=== PATIENT | female | born 1935 | race Caucasian/White ===

== ENCOUNTER 2017-10-25 01:00 | Inpatient (IN) | payer OTHER ==
[2017-10-25] VITALS (10 sets, daily range): BP systolic 125–181; BP diastolic 67–90
[~2017-10-25] VITALS: Ht 152.4 cm; Wt 64.0 kg
[~2017-10-25 01:00] MED LIST: ARICEPT5 M1 PO; ASPI-COR81 MG PO; ASPIRIN ADULT L81 M1 PO; B/P; ELIQUIS5 M1 PO; HYDRALAZINE10 MG PO; KEFTAB500 MG PO; LISINOPRIL20 MG PO; LOPRESSOR25 MG PO; MELOXICAM15 MG PO; METOPROLOL TART50 M1 PO; OMEPRAZOLE D/R20 MG PO; PERCOCET 325 MG1 TA7 PO; SERTRALINE HYDR50 MG PO; THYROID; VESICARE5 MG PO
--- NOTE | 2017-10-25 03:00 | NUR ---
PT DENIES ANY PAIN AT THIS TIME, PERCOCET EFFECTIVE.
--- NOTE | 2017-10-25 04:05 | NUR ---
Time: 404 A 82 year old F admitted to 4E under services of LENNOX HAWK DO. Pt. arrived via STRET[facility]ER from ER. Chief complaint: WEAKNESS. RAJESH BURGER
--- NOTE | 2017-10-25 04:47 | NUR ---
Unable to verify medication reconciliation at this time due to discrepancy between patient's medication list and medication claims history. Will need to verify with patient's pharmacy in am.
[2017-10-25 05:58] LABS: BASO % 0.5 % (0.0-1.0); EOS # 0.1 10*3/uL (0.0-0.4); EOS % 1.6 % (1.0-4.0); HEMATOCRIT 33.4 % (37.0-47.0); HEMOGLOBIN 11.3 g/dl (12.0-16.0); LYMPH # 0.9 10*3/uL (1.3-4.4); LYMPH % 20.9 % (27.0-41.0); MEAN CORPUSCULAR HGB 31.1 pg (27.0-31.0); MEAN CORPUSCULAR HGB CONC 33.8 g/dl (33.0-37.0); MEAN PLATELET VOLUME 10.4 fl (9.6-12.3); MONO # 0.4 10*3/uL (0.1-1.0); NEUT # 2.9 10*3/uL (2.3-7.9); NEUT % 66.8 % (47.0-73.0); PLATELET COUNT AUTOMATED 226 10*3/uL (130-400); RED BLOOD COUNT 3.63 10*6/uL (4.10-5.10); RED CELL DISTRI WIDTH 13.4 % (0-14.5); WHITE BLOOD COUNT 4.4 10*3/uL (4.8-10.8)
[2017-10-25 06:09] LABS: ACT PARTIAL THROMBO TIME 28.8 SECONDS (20.8-31.5); INTERNATIONAL NORM RATIO 1.1 (2.0-3.5)
[2017-10-25 06:10] LABS: BUN 19 mg/dl (7-24); CHLORIDE 103 mmol/L (98-107); CHOLESTEROL 191 mg/dL (<200); CREATININE 0.71 mg/dL (0.55-1.02); HDL CHOLESTEROL 41 mg/dl (40-60); LDL CHOLESTEROL 122 mg/dL (9-159); PHOSPHOROUS 3.5 mg/dL (2.5-4.9); POTASSIUM 3.7 mmol/L (3.5-5.1); SODIUM 138 mmol/L (136-145); TRIGLYCERIDES 141 mg/dl (<150); VLDL CHOLESTEROL 28 mg/dL (6-40)
[2017-10-25 06:17] LABS: THYROID STIM HORMONE (HS) 0.612 uIU/ml (0.358-4.75)
[2017-10-25 08:03] LABS: VITAMIN D, 25-HYDROXY 48.2 ng/mL (30-100)
[2017-10-25] MEDS ORDERED: LEXAPRO10 MG PO (11:27)
[2017-10-25] MEDS ORDERED: NORVASC5 MG PO (11:30)
--- NOTE | 2017-10-25 11:31 | NUR ---
MEDICATION RECONCILIATION UPDATED WITH PATIENTS HOME PHARMACY [facility].
--- NOTE | 2017-10-25 14:53 | NUR ---
MEDICATED WITH PERCOCET FOR COMPLAINTS OF HEADACHE AND PAIN IN FEET. WILL MONITOR FOR EFFECTIVENESS.
--- NOTE | 2017-10-25 15:30 | NUR ---
PERCOCET WAS EFFECTIVE. PATIENT AMBULATING IN MORALES WITH STAFF MEMBER WITHOUT ANY COMPLAINTS OF HEADACHE BUT STILL SOME CRAMPING OF HER LEGS.
--- NOTE | 2017-10-25 22:10 | NUR ---
Medicated with Percocet for pain in feet. Will monitor effectiveness. Call light within reach.
--- NOTE | 2017-10-25 23:10 | NUR ---
Patient resting quietly in bed with eyes closed. Percocet effective. Will continue to monitor. Call light within reach.
[2017-10-26] VITALS: BP 113/88
--- NOTE | 2017-10-26 00:46 | NUR ---
24 HR chart check completed.
--- NOTE | 2017-10-26 03:32 | NUR ---
Medicated with Morphine IV prn for right leg pain rating 8/10. Will monitor effectiveness. Call light within reach.
--- NOTE | 2017-10-26 04:00 | NUR ---
Patient resting quietly in bed with eyes closed. Morphine effective. Will continue to monitor. Call light within reach.
[2017-10-26 05:55] LABS: BASO % 0.5 % (0.0-1.0); EOS # 0.1 10*3/uL (0.0-0.4); EOS % 3.1 % (1.0-4.0); HEMATOCRIT 31.3 % (37.0-47.0); HEMOGLOBIN 10.5 g/dl (12.0-16.0); LYMPH # 0.9 10*3/uL (1.3-4.4); LYMPH % 24.4 % (27.0-41.0); MEAN CELL VOLUME 92.9 fl (81.0-99.0); MEAN CORPUSCULAR HGB 31.2 pg (27.0-31.0); MEAN CORPUSCULAR HGB CONC 33.5 g/dl (33.0-37.0); MEAN PLATELET VOLUME 10.5 fl (9.6-12.3); MONO # 0.5 10*3/uL (0.1-1.0); MONO % 13.2 % (3.0-9.0); NEUT # 2.3 10*3/uL (2.3-7.9); NEUT % 58.5 % (47.0-73.0); PLATELET COUNT AUTOMATED 214 10*3/uL (130-400); RED BLOOD COUNT 3.37 10*6/uL (4.10-5.10); RED CELL DISTRI WIDTH 13.7 % (0-14.5); WHITE BLOOD COUNT 3.9 10*3/uL (4.8-10.8)
[2017-10-26 06:21] LABS: BUN 15 mg/dl (7-24); CHLORIDE 102 mmol/L (98-107); CREATININE 0.91 mg/dL (0.55-1.02); POTASSIUM 3.9 mmol/L (3.5-5.1); SODIUM 137 mmol/L (136-145)
[2017-10-26 08:00] VITALS: BP 127/66
--- NOTE | 2017-10-26 08:30 | NUR ---
PT RESTING IN BED. RESP-EASY AND REGULAR. C/O RIGHT LEG PAIN, RATES PAIN 2 OR 3 ON PAIN SCALE. MEDICATED WITH PERCOCET PO PER PRN ORDER, SEE EMAR. EATING BREAKFAST. CALL LIGHT IN REACH. SEE SHIFT ASSESSMENT.
--- NOTE | 2017-10-26 09:20 | NUR ---
PT RESTING IN BED. STATES PAIN MEDICATION EFFECTIVE. CALL LIGHT IN REACH.
--- NOTE | 2017-10-26 10:00 | NUR ---
TOLERATED ROUTINE MED WITH NO PROBLEM. NO C/O AT THIS TIME. CALL LIGHT IN REACH.
[2017-10-26 12:00] VITALS: BP 108/57
--- NOTE | 2017-10-26 12:00 | NUR ---
PT SITTING UP IN RECLINER CHAIR. RESP-EASY AND REGULAR. CALL LIGHT IN REACH.
--- NOTE | 2017-10-26 14:00 | NUR ---
SLEEPING IN RECLINER CHAIR. CALL LIGHT IN REACH.
[2017-10-26 16:00] VITALS: BP 132/69
--- NOTE | 2017-10-26 16:00 | NUR ---
SITTING UP IN CHAIR WITH VISITORS AT HER SIDE. RESP-EASY AND REGULAR. NO C/O AT THIS TIME. CALL LIGHT IN REACH.
--- NOTE | 2017-10-26 17:25 | NUR ---
TOLERATED ROUTINE MED WITH NO PROBLEM. C/O RIGHT LEG PAIN, RATES PAIN 5 ON PAIN SCALE 0-10. MEDICATED WITH PERCOCET PO PER PRN ORDER, SEE EMAR. CALL LIGHT IN REACH.
--- NOTE | 2017-10-26 18:15 | NUR ---
PT RESTING IN BED. MEDICATION EFFECTIVE. CALL LIGHT IN REACH.
[2017-10-26 20:00] VITALS: BP 108/54
--- NOTE | 2017-10-26 20:00 | NUR ---
PT RESTING WITH BED WITH VISITORS AT BESIDE. NO DISTRESS NOTED AT THIS TIME. RESPIRATIONS EASY AND UNLABORED. CALL LIGHT IN REACH.
--- NOTE | 2017-10-26 20:40 | NUR ---
RN NOTIFIED DR GRAHAM OF BLOOD PRESSURE OF 108/54. APRESOLINE, LOPRESSOR, NORVASC, AND ZESTRIL ORDERED FOR 2199 MEDICATION PASS. RN INSTRUCTED TO HOLD APRESOLINE PER DR GRAHAM FOR 2199 MED PASS.
--- NOTE | 2017-10-26 23:35 | NUR ---
PT COMPLAINS OF RIGHT LEG PAIN 07/03. MEDICATED WITH GOOD EFFECT. SEE EMAR.
[2017-10-27] VITALS: BP 120/74
--- NOTE | 2017-10-27 02:00 | NUR ---
PT RESTING IN BED COMPLAINS OF RIGHT LEG PAIN 07/03. MEDICATED WITH GOOD EFFECT SEE EMAR FOR FUTHER DOCUMENTION.
--- NOTE | 2017-10-27 07:55 | NUR ---
PHYSICAL THERAPY Nursing screen received, patient has PT orders. Thank you. Alma Staton,PT
[2017-10-27 08:00] VITALS: BP 132/72
--- NOTE | 2017-10-27 09:00 | NUR ---
Commercial Relationship Manager in to talk to patient. Patient states lives at home with alone. There are few steps in the home. Physician: magdy de la torre Pharmacy: [facility] health services: none Patient's level of ADLs: INDEPENDENT Patient has working utilities: all working DME: walker Follow-up physician's appointment after d/c: will be made by hospitalist nurse director upon discharge Does patient want to access PORTAL?: no Discharge plan discussed with patient, patient lives at home alone, states she uses a walker for ambulation, discussed with her a short term fdc for rehab prior to going back home, patient refused, stated she was going home when able, also discussed with her VNA and she also refused this, case management will follow for any home needs. JUNIOR LAZO
--- NOTE | 2017-10-27 10:18 | NUR ---
PT COMPLAINS OF ITCHING ON BACK AND SHOULDERS. I APPLIED LOTION HOWEVER WHEN REASSESSED 1 HR LATER SHE STATED IT WAS IN EFFECTIVE. DR PATHAK WAS CALLED AND NOTIFIED AND ORDERED BENADRYL.
--- NOTE | 2017-10-27 11:20 | NUR ---
PHYSICAL THERAPY Patient evaluated on 4, full evaluation to follow. COntinue with PT as per plan of care with fall, right posterior knee pain and mod (A) for mobility as well as alarm precautions. Recommend SNF for significant impaired mobility. Recommend ortho consult for severe pain and limited mobility from pain at right posterior kneee. PAtient is moderate complexity via chart review, tests and evaluation: 02187. Thank you for this referral. Alma Buckner,PT
--- NOTE | 2017-10-27 11:22 | NUR ---
PT REQUESTED PRN MORPHINE FOR 8/10 PAIN IN RT KNEE. KNEE WAS ASSESSED THERE WERE NO DEFORMITY OR ABNORMALITY. PT STATES THIS IS A CHRONIC PROBLEM.
--- NOTE | 2017-10-27 11:50 | NUR ---
Occupational Therapy evaluation completed on 4 with full eval to follow. PRecautions include severe pain r knee with weighbearing and ww use, moderate complexity [id number], fall risk. Recommend OT per POC, orthopedic consult to right knee and SNF upon d/c to enable safe return home at [facility]. Thank you for this referral. Sue Bobby OTR/L
[2017-10-27 12:00] VITALS: BP 134/70
--- NOTE | 2017-10-27 14:03 | NUR ---
PHYSICAL THERAPY Rocío seen this PM 1:1 for her therapy gait two sisters present and Rocío had her pain meds. Pt having C/O right knee pain and with act rom got a little better before her gait. Transfer sit/stand and up on wheeled walker X 3, with MOD A X 1. Followed by gait 65' X 1, with W/W and MOD BARRER AND TACKER X 1, with verbal cueing for gait, turn, walker safety and stop/start gait. Pt back up in her bedside chair no new complains, sisters going to stay. NICKI CANCHOLA HAND COMPOSITOR.
--- NOTE | 2017-10-27 14:19 | NUR ---
PATIENT SEEN 1:1 OT THIS DATE 18 MINUTES. PATIENT SEATED IN RECLINER. PATIENT WILLING TO COMPLETE ACTIVITY TO TOLERANCE. PATIENT COMPLETED SIT TO STAND FROM RECLINER MIN A AND COMPLETED FUNCTIONAL AMBULATION USE FWW SHORT DISTANCE TO BED MIN A WITH VERBAL CUES TECHNIQUE. PATIENT C/O FEELING STIFF R KNEE AND INCREASE TIME REQUIRED. PATIENT COMPLETED GROOMING SEATED EOB SBA AFTER DONAHUE. PATIENT REQUESTED TO LIE DOWN. COMPLETED SIT TO SUPINE MIN A WITH CALL LIGHT IN PLACE. NO FURTHER NEEDS VERBALIZED. LETITIA BAZZI/Vikas
[2017-10-27 16:00] VITALS: BP 136/72
[2017-10-27 20:00] VITALS: BP 144/72
--- NOTE | 2017-10-27 20:00 | NUR ---
PT SITTING UP IN BED WITH FAMILY AT BEDSIDE. RESPS EASY AND REGULAR. NO ACUTE DISTRESS NOTED. PT COMPLAINS OF RIGHT KNEE PAIN 07/03. MEDICATED WITH GOOD EFFECT. SEE EMAR FOR FURTHER DOCUMENTION.
[2017-10-28] VITALS: BP 141/66
--- NOTE | 2017-10-28 02:23 | NUR ---
PT RESTING IN BED WITH EYES CLOSED. RESPS EASY AND REGULAR. CALL LIGHT IN REACH.
[2017-10-28 08:00] VITALS: BP 132/78
--- NOTE | 2017-10-28 08:48 | NUR ---
PHYSICAL THERAPY Rocío seen this AM 1:1 for her physical therapy gait, Pt supine in bed. Transfer supine/sit MIN A X 1, sitting balance CGA X 1, X 5 min. Sit/stand and standing balance with wheeled walker MOD A X 1. Then gait 50' X 1, with wheeled walker, verbal cueing for gait, walker safety and just a slow gait due to rigth knee pain in extension. Pt back supine MIN A X 1, call light and phone. NICKI CANCHOLA PORT CAPTAIN.
--- NOTE | 2017-10-28 08:52 | NUR ---
MEDICATED PT FOR C/O PAIN IN RIGHT KNEE THAT PT RATES A 7 ON A PAIN SCALE OF 10 MELA REYESCC
--- NOTE | 2017-10-28 09:17 | NUR ---
PATIENT SEEN 1:1 OT THIS DATE 30 MINUTES. PATIENT IN BED UPON ARRIVAL AND REPORTS 7/10 R KNEE PAIN WITH NURSING AWARE. PATIENT COMPLETED SUPINE TO SIT EOB MIN A WITH INCREASE TIME. PATIENT COMPLETED SIT TO STAND FROM BED MIN A WITH VERBAL CUES PROPER HAND PLACEMENT. PATIENT COMPLETED SPT MIN A USE FWW TO BEDSIDE COMMODE WITH DIFFICULTY SECONDARY TO INCREASE PAIN RIGHT KNEE. PATIENT COMPLETED TOILETING TASK MOD A WITH MIN VERBAL CUES SAFETY USE FWW SUPPORT. SPT FROM BEDSIDE COMMODE TO BED MIN A USE FWW. PATIENT REQUESTED TO LIE DOWN DUE TO KNEE PAIN MIN A.COMPLETED EDUCATION ONLY USE AE FOR INCREASE I WITH LB DRESSING TASK SECONDARTY DIFFICULTY REACHING B FEET. COMPLETED BUE AROM ALL PLANES X 10 REPS WITH MOD VERBAL CUES TECH/FORM. PATIENT IN BED WITH CALL LIGHT WITHIN REACH. LETITIA RODRIGUEZ
--- NOTE | 2017-10-28 09:45 | NUR ---
PT STATES THAT SHE CAN MOVE FEET AND TOES WITHOUT PAIN BUT HAS PAIN ON WALKING, PAIN IMPORVED TO 6 WITH PERCOCET MELA MARTINEZ SPNRCC
--- NOTE | 2017-10-28 10:39 | NUR ---
MEDICATED PT WITH MORPHINE FOR CONTINUED C/O PAIN AND PER REQUEST, PT RATES PAIN A 7 ON A PAIN SCALE OF 10 MELA REYESCC
--- NOTE | 2017-10-28 10:45 | NUR ---
case management visits with patient, discussed with her a discharge plan including a short term residential for rehab prior to going back home, patient stated she wanted to go home, but she would think about the SNF, case management or business continuity planner will talk with patient later regarding SNF
[2017-10-28 12:00] VITALS: BP 122/60
--- NOTE | 2017-10-28 12:50 | NUR ---
PT. WAS GIVEN MORPHINE FOR PAIN. UPON REASSESSMENT PT. STILL RATED PAIN AT A 7 OUT OF 10. MELA WILKINSON
--- NOTE | 2017-10-28 13:13 | NUR ---
PHYSICAL THERAPY Pt seen this PM 1:1 for her therapy with improvement and improvement with right knee pain. All transfers were MOD A X 1. Gait with wheeled walker 80' X 2, MIN/MOD A X 1, with verbal cueing for gait, walker safety and her turns. Pt is improving with her therapy. NICKI CANCHOLA PROCESS EXPERT.
--- NOTE | 2017-10-28 13:51 | NUR ---
PT. FINISHED LUNCH THAT FAMILY BROUGHT IN. AMBULATED VERY WELL TO RESTROOM, AND IS NOW SITTING UP IN BED TALKING TO FAMILY AND WATCHING TV. MELA MARTINEZ SPNRCC
--- NOTE | 2017-10-28 14:32 | NUR ---
Patient and family are now requested snf placement. Explained patients insurance will only be accepted by either [facility] in [place] or the [facility]. Family asked for referral to be made to the [facility] in [place]. Referral was faxed, asked to start precert as soon as possible. Requires precert.
--- NOTE | 2017-10-28 15:40 | NUR ---
PT C/O HEADACHE, RATES PAIN 5 ON PAIN SCALE 0-10. MEDICATED WITH PERCOCET PO PER PRN ORDER, SEE EMAR. CALL LIGHT IN REACH. VISITOR AT HER SIDE.
[2017-10-28 16:00] VITALS: BP 126/62
[2017-10-28 20:00] VITALS: BP 143/72
--- NOTE | 2017-10-28 20:15 | NUR ---
PATIENT SITTING ON SIDE OF BED C/O KNEE PAIN. NO OTHER COMPLAINTS. BED IN LOWEST POSITION, CALL LIGHT IN REAC
--- NOTE | 2017-10-28 23:40 | NUR ---
24 HR chart check completed.
[2017-10-29] VITALS: BP 110/57
--- NOTE | 2017-10-29 03:13 | NUR ---
PATIENT RESTING IN BED WITH NO S/S OF DISTRESS. RESPS EASY AND REGULAR. BED IN LOWEST POSITION, BED ALARM ON, CALL LIGHT IN REACH
[2017-10-29 06:16] LABS: BASO % 0.8 % (0.0-1.0); EOS # 0.2 10*3/uL (0.0-0.4); HEMATOCRIT 32.9 % (37.0-47.0); HEMOGLOBIN 10.8 g/dl (12.0-16.0); LYMPH % 24.3 % (27.0-41.0); MEAN CELL VOLUME 95.1 fl (81.0-99.0); MEAN CORPUSCULAR HGB 31.2 pg (27.0-31.0); MEAN CORPUSCULAR HGB CONC 32.8 g/dl (33.0-37.0); MEAN PLATELET VOLUME 10.6 fl (9.6-12.3); MONO # 0.6 10*3/uL (0.1-1.0); MONO % 13.8 % (3.0-9.0); NEUT # 2.2 10*3/uL (2.3-7.9); NEUT % 55.8 % (47.0-73.0); PLATELET COUNT AUTOMATED 196 10*3/uL (130-400); RED BLOOD COUNT 3.46 10*6/uL (4.10-5.10); RED CELL DISTRI WIDTH 13.8 % (0-14.5)
[2017-10-29 06:29] LABS: BUN 20 mg/dl (7-24); CHLORIDE 104 mmol/L (98-107); CREATININE 0.86 mg/dL (0.55-1.02); POTASSIUM 4.4 mmol/L (3.5-5.1); SODIUM 141 mmol/L (136-145)
[2017-10-29 08:00] VITALS: BP 154/78
--- NOTE | 2017-10-29 08:00 | NUR ---
PT RESTING IN BED. RESP-EASY AND REGULAR. NO C/O AT THIS TIME. CALL LIGHT IN REACH. SEE SHIFT ASSESSMENT.
--- NOTE | 2017-10-29 10:16 | NUR ---
PHYSICAL THERAPY Rocío seen this AM 1:1 for her physical therapy treatment. Pt said that her right knee was feeling much better today and could work into act right knee extension with little pain now and was very pleased with that. Transfer supine/sit MOD A X 1, sitting balance CG X 1, X 5 min, no LOB. Sit/stand and standing balance with wheeled walker MOD A X 1. Followed by gait 85' X 2, W/W and MIN/MOD A X 1, with verbal cueing for gait safety, walker and her turns with Pt wanting to drift to her left, but no LOB and cueing for this. Pt back supine in bed, call light and phone. NICKI CANCHOLA WARPER FIXER.
--- NOTE | 2017-10-29 10:39 | NUR ---
PT C/O RIGHT LEG PAIN, RATES PAIN 3 OR 4 ON PAIN SCALE 0-10. MEDICATED WITH PERCOCET PO PER PRN ORDER, SEE EMAR. CALL LIGHT IN REACH.
--- NOTE | 2017-10-29 11:30 | NUR ---
RESTING IN BED STATES PAIN MEDICATION EFFECTIVE. CALL LIGHT IN REACH.
[2017-10-29 12:00] VITALS: BP 160/67
--- NOTE | 2017-10-29 12:55 | NUR ---
PHYSICAL THERAPY Rocío was seen this PM 1:1 for her therapy. Pt transfer supine/sit, sitting balance MIN A X 1, and having C/O right knee pain and did not know why. Sit/stand and standing balance MOD A X 1, trying to work out her knee pain. Gait 45' X 1, W/W and MOD CARBURETOR EXPERT X 1, and wanting to go back to bed with this. With pt in supine working right knee extension rom, act quad sets with improvement in her pain. Pt with call light and phone. NICKI CANCHOLA IT INFRASTRUCTURE MANAGER.
--- NOTE | 2017-10-29 13:45 | NUR ---
Patient accepted to the [facility] in [place], PASS/RR completed online in hens system, precert started, waiting on auth.
--- NOTE | 2017-10-29 14:07 | NUR ---
Received authorization for patient to go to the [facility] in [place], patient can go today if medically stable for discharge.
--- NOTE | 2017-10-29 14:40 | NUR ---
OCCUPATIONAL THERAPY CO-SIGN I approve of the Occupational Therapy notes written above. DAVID BALL OTR/Vikas
--- NOTE | 2017-10-29 15:11 | NUR ---
Discharge instructions reviewed with patient/family. Patient receptive and verbalizes understanding. Follow-up care arranged. Written instructions given to patient/family. [place] REMOVED. MONITOR REMOVED. PT WAITING FOR DAUGHTER TO HVAC R INSTRUCTOR TO TAKE TO [facility]. STEPHEN PETERSON
--- NOTE | 2017-10-29 15:47 | NUR ---
PT C/O RIGHT LEG PAIN RATES PAIN 7 ON PAIN SCALE 0-10. MEDICATED WITH PERCOCET PO PER PRN ORDER, SEE EMAR. CALL LIGHT IN REACH. VISITOR AT HER SIDE.
[2017-10-29 16:00] VITALS: BP 153/66
--- NOTE | 2017-10-29 16:30 | NUR ---
Discharge instructions reviewed with patient/family. Patient receptive and verbalizes understanding. Follow-up care arranged. Written instructions given to patient/family. DAUGHTER AT HER SIDE. ESCORTED OFF THE FLOOR VIA WHEELCHAIR. PACKET GIVEN TTO PT FOR NASIR. STEPHEN PETERSON
--- NOTE | 2017-10-29 17:02 | NUR ---
GAVE REPORT TO NURSE AT [facility]. NURSE WYATT
--- NOTE | 2017-10-30 08:26 | NUR ---
PHYSICAL THERAPY CO-SIGN I approve of the Phyical Therapy notes written above. PARTHA BRASHER PT
== END 2017-10-29 16:30 | disposition other institution (70) | DRG 554 ==
LOC: ED 01:00 → 4E 03:24 → EDHOLD 03:24 → 4E 03:35
PROVIDERS: Family Medicine; Internal Medicine; Student in an Organized Health Care Education/Training Program; ADMIT Internal Medicine
DX: M19.90 Unspecified osteoarthritis, unspecified site (principal); E66.9 Obesity, unspecified; E78.5 Hyperlipidemia, unspecified; I10 Essential (primary) hypertension; R26.2 Difficulty in walking, not elsewhere classified; K21.9 Gastro-esophageal reflux disease without esophagitis; F32.9 Major depressive disorder, single episode, unspecified; Z96.652 Presence of left artificial knee joint; M25.561 Pain in right knee; Z87.891 Personal history of nicotine dependence; Z82.49 Family history of ischemic heart disease and other diseases of the circulatory system; Z83.79 Family history of other diseases of the digestive system; Z91.19 Patient's noncompliance with other medical treatment and regimen; Z86.718 Personal history of other venous thrombosis and embolism; Z79.01 Long term (current) use of anticoagulants; Z68.27 Body mass index [BMI] 27.0-27.9, adult; Z90.710 Acquired absence of both cervix and uterus; Z79.899 Other long term (current) drug therapy; Z91.81 History of falling

== ENCOUNTER 2018-01-05 11:00 | Inpatient (IN) | payer OTHER ==
[~2018-01-05] VITALS: Ht 152.4 cm; Wt 64.7 kg
[~2018-01-05 11:00] MED LIST changes: +LEXAPRO10 MG PO; +NORVASC5 MG PO; -PERCOCET 325 MG1 TA7 PO; +Percocet 325 MG1 TAB PO
[2018-01-05 11:22] VITALS: BP 180/84
[2018-01-05 12:56] LABS: BILIRUBIN NEGATIVE (NEGATIVE); BLOOD NEGATIVE (NEGATIVE); CLARITY CLEAR (CLEAR); COLOR STRAW (YELLOW); GLUCOSE NEGATIVE (NEGATIVE); KETONE TRACE (NEGATIVE); LEUKO ESTERASE NEGATIVE (NEGATIVE); NITRITE NEGATIVE (NEGATIVE); UROBILINOGEN 0.2 E.U./dl (0.2-1.0)
[2018-01-05 13:07] VITALS: BP 151/76
[2018-01-05 13:09] LABS: BASO % 0.5 % (0.0-1.0); EOS # 0.1 10*3/uL (0.0-0.4); EOS % 1.5 % (1.0-4.0); HEMATOCRIT 37.7 % (37.0-47.0); HEMOGLOBIN 12.9 g/dl (12.0-16.0); LYMPH # 0.6 10*3/uL (1.3-4.4); LYMPH % 9.2 % (27.0-41.0); MEAN CELL VOLUME 90.6 fl (81.0-99.0); MEAN CORPUSCULAR HGB CONC 34.2 g/dl (33.0-37.0); MEAN PLATELET VOLUME 10.4 fl (9.6-12.3); MONO # 0.4 10*3/uL (0.1-1.0); MONO % 6.6 % (3.0-9.0); NEUT % 81.9 % (47.0-73.0); PLATELET COUNT AUTOMATED 240 10*3/uL (130-400); RED BLOOD COUNT 4.16 10*6/uL (4.10-5.10); RED CELL DISTRI WIDTH 13.6 % (0-14.5); WHITE BLOOD COUNT 6.1 10*3/uL (4.8-10.8)
[2018-01-05 13:24] LABS: EPITHELIAL CELLS 0-2; RBC 0-2 rbc/hpf (0-2); WBC 0-2 wbc/hpf (0-5)
[2018-01-05 14:19] LABS: ALBUMIN 3.9 gm/dl (3.1-4.5); ALKALINE PHOSPHATASE 90 U/L (45-117); BUN 18 mg/dl (7-24); CHLORIDE 100 mmol/L (98-107); CREATININE 0.65 mg/dL (0.55-1.02); POTASSIUM 3.7 mmol/L (3.5-5.1); SGOT/AST 22 IU/L (3-35); SGPT/ALT 20 U/L (12-78); SODIUM 134 mmol/L (136-145); TOTAL PROTEIN 7.6 gm/dL (6.4-8.2)
[2018-01-05 15:10] VITALS: BP 178/80
[2018-01-05] MEDS ORDERED: VITAMIN D-32000 UNI1 PO (15:34)
[2018-01-05] MEDS ORDERED: VITAMIN D31000 UNI1 PO (15:34)
[2018-01-05] MEDS ORDERED: ASPIR 8181 MG PO (15:35)
[2018-01-05] MEDS ORDERED: REQUIP1 M1 PO (15:37)
[2018-01-05] MEDS ORDERED: TOVIAZ4 MG PO (15:37)
[2018-01-05] MEDS ORDERED: MELATONIN1 MG PO (15:38)
[2018-01-05] MEDS ORDERED: AZO STANDARD97.5 MG PO (15:41)
[2018-01-05] MEDS ORDERED: ACAI500 MG PO (15:42)
[2018-01-05 20:00] VITALS: BP 140/73
[2018-01-06] VITALS: BP 132/72
[2018-01-06 06:47] LABS: ALBUMIN 3.1 gm/dl (3.1-4.5); BUN 22 mg/dl (7-24); CHLORIDE 101 mmol/L (98-107); CHOLESTEROL 192 mg/dL (<200); CREATININE 1.02 mg/dL (0.55-1.02); PHOSPHOROUS 3.9 mg/dL (2.5-4.9); POTASSIUM 3.8 mmol/L (3.5-5.1); SGOT/AST 13 IU/L (3-35); SGPT/ALT 15 U/L (12-78); SODIUM 136 mmol/L (136-145); TOTAL PROTEIN 6.4 gm/dL (6.4-8.2); TRIGLYCERIDES 129 mg/dl (<150); VLDL CHOLESTEROL 26 mg/dL (6-40)
[2018-01-06 06:52] LABS: BASO # 0.1 10*3/uL (0.0-0.1); BASO % 1.2 % (0.0-1.0); EOS # 0.2 10*3/uL (0.0-0.4); LYMPH # 0.9 10*3/uL (1.3-4.4); LYMPH % 20.1 % (27.0-41.0); MEAN CELL VOLUME 92.1 fl (81.0-99.0); MEAN CORPUSCULAR HGB 31.4 pg (27.0-31.0); MEAN CORPUSCULAR HGB CONC 34.1 g/dl (33.0-37.0); MEAN PLATELET VOLUME 10.7 fl (9.6-12.3); MONO # 0.6 10*3/uL (0.1-1.0); NEUT # 2.6 10*3/uL (2.3-7.9); NEUT % 61.5 % (47.0-73.0); PLATELET COUNT AUTOMATED 213 10*3/uL (130-400); RED BLOOD COUNT 3.41 10*6/uL (4.10-5.10); RED CELL DISTRI WIDTH 13.8 % (0-14.5); WHITE BLOOD COUNT 4.2 10*3/uL (4.8-10.8)
[2018-01-06 06:56] LABS: ALKALINE PHOSPHATASE 74 U/L (45-117); FREE T4 0.95 ng/dl (0.76-1.46); HDL CHOLESTEROL 42 mg/dl (40-60); LDL CHOLESTEROL 124 mg/dL (9-159); THYROID STIM HORMONE (HS) 0.681 uIU/ml (0.358-4.75)
[2018-01-06 07:02] LABS: HEMATOCRIT 31.4 % (37.0-47.0); HEMOGLOBIN 10.7 g/dl (12.0-16.0)
[2018-01-06 07:10] VITALS: BP 162/74
[2018-01-06 08:19] LABS: VITAMIN D, 25-HYDROXY 46.7 ng/mL (30-100)
[2018-01-06 12:00] VITALS: BP 158/86
[2018-01-06 14:00] VITALS: BP 158/86
[2018-01-06 16:00] VITALS: BP 123/93
[2018-01-06 20:00] VITALS: BP 125/65
[2018-01-07] VITALS: BP 150/63
[2018-01-07 06:45] VITALS: BP 152/78
[2018-01-07 08:00] VITALS: BP 147/64
[2018-01-07 12:00] VITALS: BP 138/72
[2018-01-07 16:00] VITALS: BP 159/80
[2018-01-07 20:00] VITALS: BP 153/63
[2018-01-08] VITALS: BP 135/64
[2018-01-08 06:45] VITALS: BP 148/72
[2018-01-08 08:00] VITALS: BP 148/72
[2018-01-08] MEDS ORDERED: ZANTAC 300300 MG PO (10:51)
[2018-01-08] MEDS ORDERED: Lovenox40 MG/0.4 PO (10:51)
[2018-01-08] MEDS ORDERED: VITAMIN D5000 UNI1 PO (10:51)
[2018-01-08 12:00] VITALS: BP 145/66
== END 2018-01-08 14:22 | disposition other institution (70) | DRG 563 ==
LOC: ED 11:00 → 5E 13:49 → EDHOLD 13:49 → 5E 14:28
PROVIDERS: Nurse Practitioner Family; Registered Nurse
DX: S42.018A Nondisplaced fracture of sternal end of left clavicle, initial encounter for closed fracture (principal); E87.1 Hypo-osmolality and hyponatremia; F32.9 Major depressive disorder, single episode, unspecified; I10 Essential (primary) hypertension; R26.2 Difficulty in walking, not elsewhere classified; M19.90 Unspecified osteoarthritis, unspecified site; E78.2 Mixed hyperlipidemia; K21.9 Gastro-esophageal reflux disease without esophagitis; E66.9 Obesity, unspecified; Z96.652 Presence of left artificial knee joint; Z60.2 Problems related to living alone; Z68.27 Body mass index [BMI] 27.0-27.9, adult; Z79.82 Long term (current) use of aspirin; Z79.899 Other long term (current) drug therapy; Z86.718 Personal history of other venous thrombosis and embolism; Z90.710 Acquired absence of both cervix and uterus; Z87.891 Personal history of nicotine dependence; Z82.49 Family history of ischemic heart disease and other diseases of the circulatory system; Z83.79 Family history of other diseases of the digestive system; Y92.89 Other specified places as the place of occurrence of the external cause; Y99.8 Other external cause status; W17.89XA Other fall from one level to another, initial encounter; Y93.89 Activity, other specified

== ENCOUNTER → 2018-01-23 | Outpatient (CLI) | payer OTHER ==
[~2018-01-23] MED LIST changes: +ACAI500 MG PO; +ASPIR 8181 MG PO; +AZO STANDARD97.5 MG PO; +Lovenox40 MG/0.4 PO; +MELATONIN1 MG PO; +REQUIP1 M1 PO; +TOVIAZ4 MG PO; +VITAMIN D-32000 UNI1 PO; +VITAMIN D31000 UNI1 PO; +VITAMIN D5000 UNI1 PO; +ZANTAC 300300 MG PO
== END | disposition home or self-care (01) ==
LOC: ORTHO 01:59
DX: S42.002A Fracture of unspecified part of left clavicle, initial encounter for closed fracture (principal); M25.812 Other specified joint disorders, left shoulder; I70.0 Atherosclerosis of aorta; M81.8 Other osteoporosis without current pathological fracture; X58.XXXA Exposure to other specified factors, initial encounter; Y93.89 Activity, other specified; Y92.89 Other specified places as the place of occurrence of the external cause; Y99.8 Other external cause status

== ENCOUNTER → 2018-02-20 | Outpatient (CLI) | payer OTHER | END | disposition home or self-care (01) | LOC: ORTHO 04:00 | DX: S42.018D Nondisplaced fracture of sternal end of left clavicle, subsequent encounter for fracture with routine healing (principal); X58.XXXD Exposure to other specified factors, subsequent encounter ==

== ENCOUNTER → 2018-04-06 | Outpatient (CLI) | payer OTHER | END | disposition home or self-care (01) | LOC: ORTHO 02:42 | DX: S42.002D Fracture of unspecified part of left clavicle, subsequent encounter for fracture with routine healing (principal); X58.XXXD Exposure to other specified factors, subsequent encounter ==

== ENCOUNTER → 2018-09-28 | Outpatient (CLI) | payer OTHER | END | disposition home or self-care (01) | LOC: ORTHO 02:09 | DX: M17.11 Unilateral primary osteoarthritis, right knee (principal); M16.11 Unilateral primary osteoarthritis, right hip ==

== ENCOUNTER 2020-01-13 08:04 | Inpatient (IN) | payer MEDICARE ==
[~2020-01-13] VITALS: Ht 152.4 cm; Wt 73.0 kg
[2020-01-13 08:27] VITALS: BP 147/48
[2020-01-13 08:49] LABS: BASO % 0.6 % (0.0-1.0); EOS # 0.4 10*3/uL (0.0-0.4); EOS % 6.9 % (1.0-4.0); HEMATOCRIT 34.5 % (37.0-47.0); HEMOGLOBIN 11.4 g/dl (12.0-16.0); LYMPH # 0.9 10*3/uL (1.3-4.4); LYMPH % 14.8 % (27.0-41.0); MEAN CELL VOLUME 97.7 fl (81.0-99.0); MEAN CORPUSCULAR HGB 32.3 pg (27.0-31.0); MONO # 0.6 10*3/uL (0.1-1.0); MONO % 10.3 % (3.0-9.0); NEUT # 4.2 10*3/uL (2.3-7.9); NEUT % 67.2 % (47.0-73.0); PLATELET COUNT AUTOMATED 211 10*3/uL (130-400); RED BLOOD COUNT 3.53 10*6/uL (4.10-5.10); RED CELL DISTRI WIDTH 13.7 % (0-14.5); WHITE BLOOD COUNT 6.2 10*3/uL (4.8-10.8)
[2020-01-13 09:06] LABS: ALBUMIN 3.4 gm/dl (3.1-4.5); ALKALINE PHOSPHATASE 96 U/L (45-117); BUN 19 mg/dl (7-24); CHLORIDE 101 mmol/L (98-107); POTASSIUM 3.8 mmol/L (3.5-5.1); SGOT/AST 11 IU/L (3-35); SGPT/ALT 16 U/L (12-78); SODIUM 139 mmol/L (136-145); TOTAL PROTEIN 6.9 gm/dL (6.4-8.2)
[2020-01-13 09:07] LABS: TROPONIN I < 0.015 ng/ml (<0.045)
[2020-01-13 09:10] LABS: ACT PARTIAL THROMBO TIME 27.9 SECONDS (20.0-32.1)
[2020-01-13 14:25] VITALS: BP 138/78
[2020-01-13 15:12] LABS: CLARITY CLEAR (CLEAR); COLOR YELLOW (YELLOW); SPECIFIC GRAVITY 1.015 (1.005-1.030); UROBILINOGEN 0.2 E.U./dl (0.2-1.0)
[2020-01-13 15:13] LABS: BILIRUBIN NEGATIVE (NEGATIVE); BLOOD NEGATIVE (NEGATIVE); GLUCOSE NEGATIVE (NEGATIVE); KETONE NEGATIVE (NEGATIVE); LEUKO ESTERASE NEGATIVE (NEGATIVE); NITRITE NEGATIVE (NEGATIVE)
[2020-01-13 15:14] LABS: BACTERIA TRACE; EPITHELIAL CELLS 0-2; WBC 0-2 wbc/hpf (0-5)
[2020-01-13 16:00] VITALS: BP 155/72
[2020-01-13] MEDS ORDERED: TYLENOL325 M3 PO (18:39)
[2020-01-13] MEDS ORDERED: ALPRAZOLAM0.25 M1 PO (18:40)
[2020-01-13] MEDS ORDERED: ZYRTEC10 M3 PO (18:42)
[2020-01-13] MEDS ORDERED: ARICEPT5 M1 PO (18:44)
[2020-01-13] MEDS ORDERED: LASIX20 MG PO (18:45)
[2020-01-13] MEDS ORDERED: NEURONTIN100 MG PO (18:46)
[2020-01-13] MEDS ORDERED: ALBUTEROL0.63 MG/3 INH (18:47)
[2020-01-13] MEDS ORDERED: OMEPRAZOLE MAGN20 MG PO (18:49)
[2020-01-13] MEDS ORDERED: MYRBETRIQ50 M1 PO (18:49)
[2020-01-13] MEDS ORDERED: ENDOCET 5-3251 EACH PO (18:50)
[2020-01-13] MEDS ORDERED: PROBIOTIC1 EAC1 PO (18:52)
[2020-01-13] MEDS ORDERED: KENALOG 0.1%80 GM T (18:53)
[2020-01-13] MEDS ORDERED: VANICREAM453 GM T (18:54)
[2020-01-13] MEDS ORDERED: VITAMIN D32000 UNI2 PO (18:56)
[2020-01-13] MEDS ORDERED: ALLERGY RELIEF25 MG PO (18:58)
[2020-01-13] MEDS ORDERED: NYSTOP60 GM T (18:59)
[2020-01-13] MEDS ORDERED: TRAMADOL HCL50 MG PO (19:00)
[2020-01-13 20:00] VITALS: BP 162/64
[2020-01-14] VITALS: BP 112/53
[2020-01-14 06:06] LABS: BASO % 0.1 % (0.0-1.0); EOS # 0.1 10*3/uL (0.0-0.4); EOS % 1.6 % (1.0-4.0); HEMATOCRIT 33.4 % (37.0-47.0); HEMOGLOBIN 11.1 g/dl (12.0-16.0); LYMPH # 0.4 10*3/uL (1.3-4.4); LYMPH % 5.7 % (27.0-41.0); MEAN CELL VOLUME 97.7 fl (81.0-99.0); MEAN CORPUSCULAR HGB 32.5 pg (27.0-31.0); MEAN CORPUSCULAR HGB CONC 33.2 g/dl (33.0-37.0); MEAN PLATELET VOLUME 10.5 fl (9.6-12.3); MONO # 0.2 10*3/uL (0.1-1.0); MONO % 2.6 % (3.0-9.0); NEUT # 6.1 10*3/uL (2.3-7.9); NEUT % 89.7 % (47.0-73.0); PLATELET COUNT AUTOMATED 239 10*3/uL (130-400); RED BLOOD COUNT 3.42 10*6/uL (4.10-5.10); RED CELL DISTRI WIDTH 13.7 % (0-14.5); WHITE BLOOD COUNT 6.9 10*3/uL (4.8-10.8)
[2020-01-14 06:33] LABS: ALBUMIN 3.2 gm/dl (3.1-4.5); CREATININE 1.15 mg/dL (0.55-1.02); POTASSIUM 4.2 mmol/L (3.5-5.1); TOTAL PROTEIN 6.7 gm/dL (6.4-8.2)
[2020-01-14 06:41] LABS: FREE T4 1.07 ng/dl (0.76-1.46); THYROID STIM HORMONE (HS) 0.207 uIU/ml (0.358-4.75)
[2020-01-14 08:00] VITALS: BP 128/63
[2020-01-14 08:15] LABS: VITAMIN D, 25-HYDROXY 69.3 ng/mL (30-100)
[2020-01-14 12:00] VITALS: BP 130/58
[2020-01-14 16:00] VITALS: BP 108/57
[2020-01-14 20:00] VITALS: BP 119/55
[2020-01-15] VITALS: BP 109/49
[2020-01-15 06:19] LABS: HEMATOCRIT 32.9 % (37.0-47.0); HEMOGLOBIN 10.7 g/dl (12.0-16.0); MEAN CELL VOLUME 97.9 fl (81.0-99.0); MEAN CORPUSCULAR HGB 31.8 pg (27.0-31.0); MEAN CORPUSCULAR HGB CONC 32.5 g/dl (33.0-37.0); MEAN PLATELET VOLUME 10.4 fl (9.6-12.3); PLATELET COUNT AUTOMATED 248 10*3/uL (130-400); RED BLOOD COUNT 3.36 10*6/uL (4.10-5.10); RED CELL DISTRI WIDTH 14.1 % (0-14.5); WHITE BLOOD COUNT 10.8 10*3/uL (4.8-10.8)
[2020-01-15 06:50] LABS: ALBUMIN 3.3 gm/dl (3.1-4.5); CREATININE 1.32 mg/dL (0.55-1.02); POTASSIUM 4.3 mmol/L (3.5-5.1); TOTAL PROTEIN 6.6 gm/dL (6.4-8.2)
[2020-01-15 07:43] LABS: PLATELET SUFFICIENCY NORMAL (NORMAL); TARGET CELLS FEW; TOTAL CELLS COUNTED 100 #CELLS
[2020-01-15 08:00] VITALS: BP 113/57
[2020-01-15 12:00] VITALS: BP 120/64
[2020-01-15 16:00] VITALS: BP 103/49
[2020-01-15 20:00] VITALS: BP 100/46
[2020-01-16] VITALS: BP 99/48
[2020-01-16 03:40] VITALS: BP 137/81
[2020-01-16 06:28] LABS: HEMATOCRIT 32.2 % (37.0-47.0); HEMOGLOBIN 10.4 g/dl (12.0-16.0); MEAN CELL VOLUME 98.2 fl (81.0-99.0); MEAN CORPUSCULAR HGB 31.7 pg (27.0-31.0); MEAN CORPUSCULAR HGB CONC 32.3 g/dl (33.0-37.0); MEAN PLATELET VOLUME 9.9 fl (9.6-12.3); PLATELET COUNT AUTOMATED 236 10*3/uL (130-400); RED BLOOD COUNT 3.28 10*6/uL (4.10-5.10)
[2020-01-16 06:39] LABS: CREATININE 1.31 mg/dL (0.55-1.02); POTASSIUM 4.5 mmol/L (3.5-5.1)
[2020-01-16 06:57] LABS: PLATELET SUFFICIENCY NORMAL (NORMAL); TOTAL CELLS COUNTED 100 #CELLS
[2020-01-16 08:00] VITALS: BP 155/64
[2020-01-16 12:00] VITALS: BP 117/54
[2020-01-16] MEDS ORDERED: PREDNISONE10 MG PO (13:36)
[2020-01-16] MEDS ORDERED: AVPAK AZITHROM250 MG PO (13:36)
== END 2020-01-16 14:15 | disposition home or self-care (01) | DRG 194 ==
LOC: ED 08:04 → EDHOLD 11:44 → 5E 11:44 → EDHOLD 12:15 → 5E 14:16
PROVIDERS: Emergency Medicine; Internal Medicine; ADMIT Internal Medicine
DX: J18.9 Pneumonia, unspecified organism (principal); E44.1 Mild protein-calorie malnutrition; F32.9 Major depressive disorder, single episode, unspecified; R26.2 Difficulty in walking, not elsewhere classified; R73.9 Hyperglycemia, unspecified; I10 Essential (primary) hypertension; E78.5 Hyperlipidemia, unspecified; M19.90 Unspecified osteoarthritis, unspecified site; K21.9 Gastro-esophageal reflux disease without esophagitis; F03.90 Unspecified dementia, unspecified severity, without behavioral disturbance, psychotic disturbance, mood disturbance, and anxiety; F43.23 Adjustment disorder with mixed anxiety and depressed mood; R91.1 Solitary pulmonary nodule; Z96.652 Presence of left artificial knee joint; E66.9 Obesity, unspecified; D64.9 Anemia, unspecified; Z86.718 Personal history of other venous thrombosis and embolism; Z90.710 Acquired absence of both cervix and uterus; Z87.891 Personal history of nicotine dependence; Z82.49 Family history of ischemic heart disease and other diseases of the circulatory system; Z83.79 Family history of other diseases of the digestive system; Z79.899 Other long term (current) drug therapy; Z68.31 Body mass index [BMI] 31.0-31.9, adult

== ENCOUNTER → 2020-06-07 | Outpatient (CLI) | payer MEDICARE ==
[~2020-06-07] MED LIST changes: +ALBUTEROL0.63 MG/3 INH; +ALLERGY RELIEF25 MG PO; +ALPRAZOLAM0.25 M1 PO; +AVPAK AZITHROM250 MG PO; +ENDOCET 5-3251 EACH PO; +KENALOG 0.1%80 GM T; +LASIX20 MG PO; +MYRBETRIQ50 M1 PO; +NEURONTIN100 MG PO; +NYSTOP60 GM T; +OMEPRAZOLE MAGN20 MG PO; +PREDNISONE10 MG PO; +PROBIOTIC1 EAC1 PO; +TRAMADOL HCL50 MG PO; +TYLENOL325 M3 PO; +VANICREAM453 GM T; +VITAMIN D32000 UNI2 PO; +ZYRTEC10 M3 PO
== END | disposition home or self-care (01) ==
LOC: CT 07:40
DX: Z01.812 Encounter for preprocedural laboratory examination (principal); K44.9 Diaphragmatic hernia without obstruction or gangrene; R22.1 Localized swelling, mass and lump, neck

== ENCOUNTER 2020-10-07 12:27 | Emergency (ER) | payer MEDICARE ==
[~2020-10-07] VITALS: Wt 71.2 kg
== END 2020-10-07 15:37 | disposition home or self-care (01) ==
LOC: ED 12:27
DX: S42.031A Displaced fracture of lateral end of right clavicle, initial encounter for closed fracture (principal); E78.5 Hyperlipidemia, unspecified; K21.9 Gastro-esophageal reflux disease without esophagitis; I10 Essential (primary) hypertension; M19.90 Unspecified osteoarthritis, unspecified site; Z79.899 Other long term (current) drug therapy; Z79.2 Long term (current) use of antibiotics; X58.XXXA Exposure to other specified factors, initial encounter; Y93.89 Activity, other specified; Y92.89 Other specified places as the place of occurrence of the external cause; Y99.8 Other external cause status

== ENCOUNTER → 2020-12-11 | Outpatient (CLI) | payer MEDICARE | END | disposition home or self-care (01) | LOC: ORTHO 00:27 | PROVIDERS: ATTEND Orthopaedic Surgery | DX: S42.021A Displaced fracture of shaft of right clavicle, initial encounter for closed fracture (principal); R91.8 Other nonspecific abnormal finding of lung field; G95.89 Other specified diseases of spinal cord; K44.9 Diaphragmatic hernia without obstruction or gangrene; K76.89 Other specified diseases of liver; S42.031A Displaced fracture of lateral end of right clavicle, initial encounter for closed fracture; X58.XXXA Exposure to other specified factors, initial encounter; Y93.89 Activity, other specified; Y92.89 Other specified places as the place of occurrence of the external cause; Y99.8 Other external cause status ==

== ENCOUNTER 2021-05-07 21:45 | Emergency (ER) | payer MEDICARE ==
[2021-05-07 23:31] LABS: BASO % 0.4 % (0.0-1.0); EOS # 0.2 10*3/uL (0.0-0.4); EOS % 2.5 % (1.0-4.0); HEMATOCRIT 34.5 % (37.0-47.0); LYMPH % 14.2 % (27.0-41.0); MEAN CELL VOLUME 89.1 fl (81.0-99.0); MEAN CORPUSCULAR HGB 28.9 pg (27.0-31.0); MEAN CORPUSCULAR HGB CONC 32.5 g/dl (33.0-37.0); MEAN PLATELET VOLUME 10.5 fl (9.6-12.3); MONO # 0.7 10*3/uL (0.1-1.0); MONO % 10.7 % (3.0-9.0); NEUT # 4.8 10*3/uL (2.3-7.9); NEUT % 71.9 % (47.0-73.0); PLATELET COUNT AUTOMATED 285 10*3/uL (130-400); RED BLOOD COUNT 3.87 10*6/uL (4.10-5.10); RED CELL DISTRI WIDTH 14.6 % (0-14.5); WHITE BLOOD COUNT 6.7 10*3/uL (4.8-10.8)
[2021-05-07 23:45] LABS: ALBUMIN 3.4 gm/dl (3.1-4.5); ALKALINE PHOSPHATASE 119 U/L (45-117); BUN 14 mg/dl (7-24); CHLORIDE 102 mmol/L (98-107); CREATININE 0.83 mg/dL (0.55-1.02); POTASSIUM 3.9 mmol/L (3.5-5.1); SGOT/AST 12 IU/L (3-35); SGPT/ALT 16 U/L (12-78); SODIUM 135 mmol/L (136-145); TOTAL PROTEIN 7.7 gm/dL (6.4-8.2)
== END 2021-05-08 02:45 ==
LOC: ED 21:45
PROVIDERS: Physician Assistant
DX: I67.1 Cerebral aneurysm, nonruptured (principal); K11.20 Sialoadenitis, unspecified; Z79.2 Long term (current) use of antibiotics; Z79.899 Other long term (current) drug therapy; Z79.82 Long term (current) use of aspirin; Z90.711 Acquired absence of uterus with remaining cervical stump; Z98.890 Other specified postprocedural states; Z96.652 Presence of left artificial knee joint; Z87.891 Personal history of nicotine dependence

== ENCOUNTER 2021-06-25 11:41 | Inpatient (IN) | payer MEDICARE ==
[~2021-06-25] VITALS: Ht 147.3 cm; Wt 71.7 kg
[2021-06-25 11:48] VITALS: BP 146/74
[2021-06-25 21:16] VITALS: BP 146/72
[2021-06-25 22:20] VITALS: BP 160/80
[2021-06-25] MEDS ORDERED: ASPIRIN ADULT L81 M2 PO (23:25)
[2021-06-25] MEDS ORDERED: VITAMIN D325 MCG PO (23:26)
[2021-06-25] MEDS ORDERED: MONTELUKAST SOD10 MG PO (23:30)
[2021-06-25] MEDS ORDERED: OXYBUTYNIN10 MG PO (23:34)
[2021-06-25] MEDS ORDERED: FLUTICASONE P15.8 ML NAS (23:40)
[2021-06-25] MEDS ORDERED: PROAIR RESPICL90 MCG INH (23:42)
[2021-06-26] VITALS: BP 156/77
[2021-06-26 06:13] LABS: CHLORIDE 101 mmol/L (98-107); POTASSIUM 4.1 mmol/L (3.5-5.1); SGOT/AST 12 IU/L (3-35); SGPT/ALT 16 U/L (12-78); SODIUM 134 mmol/L (136-145); TOTAL PROTEIN 6.9 gm/dL (6.4-8.2)
[2021-06-26 06:27] LABS: BASO % 0.5 % (0.0-1.0); EOS % 0.6 % (1.0-4.0); HEMATOCRIT 32.2 % (37.0-47.0); LYMPH # 0.7 10*3/uL (1.3-4.4); LYMPH % 11.1 % (27.0-41.0); MEAN CELL VOLUME 89.9 fl (81.0-99.0); MEAN CORPUSCULAR HGB 28.8 pg (27.0-31.0); MEAN PLATELET VOLUME 11.1 fl (9.6-12.3); MONO # 0.6 10*3/uL (0.1-1.0); MONO % 9.2 % (3.0-9.0); NEUT # 4.9 10*3/uL (2.3-7.9); NEUT % 78.3 % (47.0-73.0); PLATELET COUNT AUTOMATED 262 10*3/uL (130-400); RED BLOOD COUNT 3.58 10*6/uL (4.10-5.10); RED CELL DISTRI WIDTH 14.4 % (0-14.5); WHITE BLOOD COUNT 6.3 10*3/uL (4.8-10.8)
[2021-06-26 06:28] LABS: ALBUMIN 3.5 gm/dl (3.1-4.5); ALKALINE PHOSPHATASE 109 U/L (45-117); BUN 11 mg/dl (7-24); CREATININE 0.68 mg/dL (0.55-1.02)
[2021-06-26 08:00] VITALS: BP 123/54
[2021-06-26 12:00] VITALS: BP 142/70
[2021-06-26 16:00] VITALS: BP 153/72
[2021-06-26 20:00] VITALS: BP 146/65
[2021-06-27] VITALS: BP 139/66
[2021-06-27 04:00] VITALS: BP 136/66
[2021-06-27 06:49] LABS: ALBUMIN 3.4 gm/dl (3.1-4.5); BUN 15 mg/dl (7-24); CHLORIDE 99 mmol/L (98-107); CREATININE 0.78 mg/dL (0.55-1.02); POTASSIUM 3.9 mmol/L (3.5-5.1); SGOT/AST 15 IU/L (3-35); SGPT/ALT 14 U/L (12-78); SODIUM 133 mmol/L (136-145)
[2021-06-27 06:51] LABS: ALKALINE PHOSPHATASE 103 U/L (45-117); TOTAL PROTEIN 7.1 gm/dL (6.4-8.2)
[2021-06-27 07:03] LABS: BASO % 0.2 % (0.0-1.0); EOS # 0.1 10*3/uL (0.0-0.4); EOS % 0.9 % (1.0-4.0); HEMATOCRIT 33.1 % (37.0-47.0); LYMPH # 0.9 10*3/uL (1.3-4.4); LYMPH % 10.1 % (27.0-41.0); MEAN CELL VOLUME 90.4 fl (81.0-99.0); MEAN CORPUSCULAR HGB 28.7 pg (27.0-31.0); MEAN CORPUSCULAR HGB CONC 31.7 g/dl (33.0-37.0); MEAN PLATELET VOLUME 10.9 fl (9.6-12.3); NEUT # 6.5 10*3/uL (2.3-7.9); NEUT % 76.6 % (47.0-73.0); PLATELET COUNT AUTOMATED 260 10*3/uL (130-400); RED BLOOD COUNT 3.66 10*6/uL (4.10-5.10); RED CELL DISTRI WIDTH 14.5 % (0-14.5); WHITE BLOOD COUNT 8.5 10*3/uL (4.8-10.8)
[2021-06-27 08:00] VITALS: BP 99/72
[2021-06-27 12:00] VITALS: BP 96/60
[2021-06-27 16:00] VITALS: BP 140/81
[2021-06-27 20:00] VITALS: BP 162/80; BP 176/69
[2021-06-28] VITALS: BP 168/71
[2021-06-28 08:00] VITALS: BP 160/70
[2021-06-28 09:05] LABS: BILIRUBIN 2+ (Negative); BLOOD Negative (Negative); CLARITY Cloudy (Clear); COLOR Orange (Yellow); GLUCOSE Negative (Negative); KETONE Trace (Negative); LEUKO ESTERASE 1+ (Negative); NITRITE Positive (Negative); SPECIFIC GRAVITY 1.025 (1.001-1.030)
[2021-06-28 09:33] LABS: BACTERIA 4+; EPITHELIAL CELLS 16-20; WBC 21-30 wbc/hpf (0-5)
[2021-06-28 12:00] VITALS: BP 170/74
[2021-06-28 13:00] VITALS: BP 158/64
[2021-06-28] MEDS ORDERED: HYDROCODONE-AC1 EAC1 PO (13:00)
== END 2021-06-28 15:08 | DRG 183 ==
LOC: ED 11:41 → EDHOLD 14:30 → 4E 19:50
PROVIDERS: Internal Medicine; Student in an Organized Health Care Education/Training Program; ADMIT Internal Medicine; ATTEND Internal Medicine
DX: S22.41XA Multiple fractures of ribs, right side, initial encounter for closed fracture (principal); J96.00 Acute respiratory failure, unspecified whether with hypoxia or hypercapnia; S42.001K Fracture of unspecified part of right clavicle, subsequent encounter for fracture with nonunion; S42.111A Displaced fracture of body of scapula, right shoulder, initial encounter for closed fracture; M89.49 Other hypertrophic osteoarthropathy, multiple sites; Z66 Do not resuscitate; Z51.5 Encounter for palliative care; E78.5 Hyperlipidemia, unspecified; F32.9 Major depressive disorder, single episode, unspecified; Z96.652 Presence of left artificial knee joint; Z20.822 Contact with and (suspected) exposure to COVID-19; K21.9 Gastro-esophageal reflux disease without esophagitis; I10 Essential (primary) hypertension; W19.XXXA Unspecified fall, initial encounter; Y93.89 Activity, other specified; Y92.89 Other specified places as the place of occurrence of the external cause; Y99.8 Other external cause status; Z86.718 Personal history of other venous thrombosis and embolism; Z90.710 Acquired absence of both cervix and uterus; Z87.891 Personal history of nicotine dependence; Z82.49 Family history of ischemic heart disease and other diseases of the circulatory system; Z79.82 Long term (current) use of aspirin; Z79.899 Other long term (current) drug therapy

== ENCOUNTER → 2021-12-25 | Outpatient (CLI) | payer MEDICARE ==
[~2021-12-25] MED LIST changes: +ACID REDUCER20 MG PO; +ASPERCREME LID1 EACH T; +ASPIRIN ADULT L81 M2 PO; +BREO ELLIPTA 11 EACH INH; +FLORASTOR250 MG PO; +FLUTICASONE P15.8 ML NAS; +HYDROCODONE-AC1 EAC1 PO; +MONTELUKAST SOD10 MG PO; +OXYBUTYNIN10 MG PO; +OXYBUTYNIN5 MG PO; +PROAIR RESPICL90 MCG INH; +QUETIAPINE FUMA25 M1 PO; +STIMULANT LAXA1 EACH PO; +VITAMIN D325 MCG PO; +ZINC50 M3 PO
== END | disposition home or self-care (01) ==
LOC: CT 10:00
PROVIDERS: ATTEND Internal Medicine Critical Care Medicine
DX: J43.9 Emphysema, unspecified (principal); R91.8 Other nonspecific abnormal finding of lung field; R59.0 Localized enlarged lymph nodes; I25.10 Atherosclerotic heart disease of native coronary artery without angina pectoris; Z87.891 Personal history of nicotine dependence; Z68.30 Body mass index [BMI] 30.0-30.9, adult

== ENCOUNTER 2022-01-14 15:13 | Inpatient (IN) | payer MEDICARE ==
[~2022-01-14] VITALS: Ht 152.4 cm; Wt 65.9 kg
[2022-01-14 15:14] VITALS: BP 103/48
[2022-01-14 16:13] LABS: BASO % 0.4 % (0.0-1.0); EOS # 0.1 10*3/uL (0.0-0.4); EOS % 2.3 % (1.0-4.0); HEMATOCRIT 31.5 % (37.0-47.0); LYMPH # 0.9 10*3/uL (1.3-4.4); LYMPH % 16.6 % (27.0-41.0); MEAN CELL VOLUME 85.1 fl (81.0-99.0); MEAN CORPUSCULAR HGB 26.5 pg (27.0-31.0); MEAN CORPUSCULAR HGB CONC 31.1 g/dl (33.0-37.0); MEAN PLATELET VOLUME 10.3 fl (9.6-12.3); MONO # 0.6 10*3/uL (0.1-1.0); MONO % 10.7 % (3.0-9.0); NEUT # 3.6 10*3/uL (2.3-7.9); NEUT % 69.6 % (47.0-73.0); PLATELET COUNT AUTOMATED 270 10*3/uL (130-400); RED CELL DISTRI WIDTH 14.9 % (0-14.5); WHITE BLOOD COUNT 5.2 10*3/uL (4.8-10.8)
[2022-01-14 16:23] LABS: ACT PARTIAL THROMBO TIME 27.1 SECONDS (20.0-32.1); INTERNATIONAL NORM RATIO 1.1 (2.0-3.5)
[2022-01-14 16:30] LABS: POTASSIUM 3.1 mmol/L (3.5-5.1); TOTAL PROTEIN 6.7 gm/dL (6.4-8.2)
[2022-01-14 16:31] LABS: CREATININE 1.2 mg/dL (0.55-1.02)
[2022-01-14 16:53] LABS: BILIRUBIN 1+ (Negative); BLOOD Negative (Negative); CLARITY Cloudy (Clear); COLOR Dark Yellow (Yellow); GLUCOSE Negative (Negative); KETONE Trace (Negative); LEUKO ESTERASE 1+ (Negative); NITRITE Negative (Negative); SPECIFIC GRAVITY 1.025 (1.001-1.030)
[2022-01-14 17:08] LABS: BACTERIA 3+; HYALINE CAST TNTC; RBC 0-2 rbc/hpf (0-2); WBC 21-30 wbc/hpf (0-5)
[2022-01-14 19:38] VITALS: BP 121/56
[2022-01-14 20:10] VITALS: BP 150/45
[2022-01-14 20:54] VITALS: BP 112/58
[2022-01-14] MEDS ORDERED: OXYBUTYNIN5 MG PO (21:59)
[2022-01-14] MEDS ORDERED: TAMSULOSIN HCL0.4 MG PO (22:01)
[2022-01-14] MEDS ORDERED: HYDROXYZINE PAM25 M1 PO (22:02)
[2022-01-15] VITALS: BP 153/60
[2022-01-15 06:30] LABS: BASO % 0.4 % (0.0-1.0); EOS # 0.1 10*3/uL (0.0-0.4); EOS % 2.1 % (1.0-4.0); HEMATOCRIT 33.3 % (37.0-47.0); LYMPH # 0.8 10*3/uL (1.3-4.4); LYMPH % 15.7 % (27.0-41.0); MEAN CELL VOLUME 84.3 fl (81.0-99.0); MEAN CORPUSCULAR HGB 26.6 pg (27.0-31.0); MEAN CORPUSCULAR HGB CONC 31.5 g/dl (33.0-37.0); MEAN PLATELET VOLUME 10.5 fl (9.6-12.3); MONO # 0.4 10*3/uL (0.1-1.0); NEUT # 3.5 10*3/uL (2.3-7.9); NEUT % 72.4 % (47.0-73.0); PLATELET COUNT AUTOMATED 277 10*3/uL (130-400); RED BLOOD COUNT 3.95 10*6/uL (4.10-5.10); RED CELL DISTRI WIDTH 14.7 % (0-14.5); WHITE BLOOD COUNT 4.8 10*3/uL (4.8-10.8)
[2022-01-15 06:35] LABS: CHLORIDE 101 mmol/L (98-107); POTASSIUM 2.8 mmol/L (3.5-5.1); SODIUM 135 mmol/L (136-145)
[2022-01-15 06:40] LABS: ALKALINE PHOSPHATASE 128 U/L (45-117); BUN 12 mg/dl (7-24); CREATININE 0.76 mg/dL (0.55-1.02); SGOT/AST 9 IU/L (3-35); SGPT/ALT 14 U/L (12-78); TOTAL PROTEIN 7.4 gm/dL (6.4-8.2)
[2022-01-15 08:00] VITALS: BP 135/57
[2022-01-15 12:36] VITALS: BP 138/62
[2022-01-15 14:32] LABS: BUN 11 mg/dl (7-24); CHLORIDE 105 mmol/L (98-107); CREATININE 0.73 mg/dL (0.55-1.02); POTASSIUM 4.1 mmol/L (3.5-5.1); SODIUM 136 mmol/L (136-145)
[2022-01-15 16:00] VITALS: BP 117/51
[2022-01-15 20:00] VITALS: BP 133/56
[2022-01-16] VITALS: BP 106/48; BP 126/36
[2022-01-16 06:17] LABS: HEMATOCRIT 32.1 % (37.0-47.0); LYMPH # 0.4 10*3/uL (1.3-4.4); LYMPH % 11.5 % (27.0-41.0); MEAN CELL VOLUME 85.4 fl (81.0-99.0); MEAN CORPUSCULAR HGB 26.9 pg (27.0-31.0); MEAN CORPUSCULAR HGB CONC 31.5 g/dl (33.0-37.0); MONO # 0.1 10*3/uL (0.1-1.0); MONO % 2.1 % (3.0-9.0); NEUT # 3.3 10*3/uL (2.3-7.9); NEUT % 86.1 % (47.0-73.0); PLATELET COUNT AUTOMATED 272 10*3/uL (130-400); RED BLOOD COUNT 3.76 10*6/uL (4.10-5.10); RED CELL DISTRI WIDTH 14.8 % (0-14.5); WHITE BLOOD COUNT 3.8 10*3/uL (4.8-10.8)
[2022-01-16 06:31] LABS: BUN 21 mg/dl (7-24); CHLORIDE 106 mmol/L (98-107); CREATININE 0.87 mg/dL (0.55-1.02); POTASSIUM 4.7 mmol/L (3.5-5.1); SODIUM 135 mmol/L (136-145)
[2022-01-16 08:00] VITALS: BP 135/68
[2022-01-16 12:00] VITALS: BP 104/52
[2022-01-16 16:00] VITALS: BP 118/55
[2022-01-16 20:00] VITALS: BP 148/71
[2022-01-17] VITALS: BP 133/60
[2022-01-17 08:00] VITALS: BP 120/67
[2022-01-17 12:00] VITALS: BP 147/78
[2022-01-17 16:00] VITALS: BP 133/60
[2022-01-17 20:00] VITALS: BP 125/82
[2022-01-18] VITALS: BP 125/56
[2022-01-18 08:00] VITALS: BP 131/59
[2022-01-18 12:00] VITALS: BP 115/48
== END 2022-01-18 16:00 | DRG 177 ==
LOC: ED 15:13 → EDHOLD 18:18 → 4E 18:18
PROVIDERS: Emergency Medicine; Internal Medicine; Student in an Organized Health Care Education/Training Program; ADMIT Family Medicine; ATTEND Family Medicine
PROC: XW033E5 Introduction of Remdesivir Anti-infective into Peripheral Vein, Percutaneous Approach, New Technology Group 5 (ICD-10-PCS; principal; 2022-01-16)
DX: U07.1 COVID-19 (principal); N17.0 Acute kidney failure with tubular necrosis; E43 Unspecified severe protein-calorie malnutrition; J12.82 Pneumonia due to coronavirus disease 2019; N39.0 Urinary tract infection, site not specified; J98.11 Atelectasis; J44.0 Chronic obstructive pulmonary disease with (acute) lower respiratory infection; N32.81 Overactive bladder; R73.9 Hyperglycemia, unspecified; R00.1 Bradycardia, unspecified; D64.9 Anemia, unspecified; I10 Essential (primary) hypertension; E78.5 Hyperlipidemia, unspecified; M15.9 Polyosteoarthritis, unspecified; K21.9 Gastro-esophageal reflux disease without esophagitis; F32.A Depression, unspecified; F41.9 Anxiety disorder, unspecified; E87.6 Hypokalemia; Z90.710 Acquired absence of both cervix and uterus; Z87.891 Personal history of nicotine dependence; Z82.49 Family history of ischemic heart disease and other diseases of the circulatory system; Z79.51 Long term (current) use of inhaled steroids; Z79.82 Long term (current) use of aspirin; Z79.1 Long term (current) use of non-steroidal anti-inflammatories (NSAID); Z79.899 Other long term (current) drug therapy

== ENCOUNTER 2022-10-14 23:30 | Inpatient (IN) | payer MEDICARE ==
[~2022-10-14] VITALS: Ht 152.4 cm; Wt 70.8 kg
[~2022-10-14 23:30] MED LIST changes: +HYDROXYZINE PAM25 M1 PO; +TAMSULOSIN HCL0.4 MG PO
[2022-10-14 23:37] VITALS: BP 109/53
[2022-10-15 00:19] LABS: BASO % 0.3 % (0.0-1.0); EOS # 0.1 10*3/uL (0.0-0.4); EOS % 1.3 % (1.0-4.0); HEMATOCRIT 34.5 % (37.0-47.0); LYMPH # 0.7 10*3/uL (1.3-4.4); LYMPH % 7.4 % (27.0-41.0); MEAN CELL VOLUME 100.6 fl (81.0-99.0); MEAN CORPUSCULAR HGB 32.9 pg (27.0-31.0); MEAN CORPUSCULAR HGB CONC 32.8 g/dl (33.0-37.0); MEAN PLATELET VOLUME 10.4 fl (9.6-12.3); MONO # 0.7 10*3/uL (0.1-1.0); MONO % 7.7 % (3.0-9.0); NEUT # 7.3 10*3/uL (2.3-7.9); NEUT % 83.1 % (47.0-73.0); PLATELET COUNT AUTOMATED 206 10*3/uL (130-400); RED BLOOD COUNT 3.43 10*6/uL (4.10-5.10); RED CELL DISTRI WIDTH 14.1 % (0-14.5); WHITE BLOOD COUNT 8.7 10*3/uL (4.8-10.8)
[2022-10-15 00:36] LABS: CREATININE 1.81 mg/dL (0.55-1.02); POTASSIUM 4.2 mmol/L (3.5-5.1)
[2022-10-15 04:21] LABS: BILIRUBIN Negative (Negative); BLOOD Negative (Negative); CLARITY Cloudy (Clear); COLOR Yellow (Yellow); GLUCOSE Negative (Negative); KETONE Negative (Negative); LEUKO ESTERASE Trace (Negative); NITRITE Negative (Negative); UROBILINOGEN 0.2 E.U./dl (0.0-1.0)
[2022-10-15 04:32] LABS: BACTERIA 3+; EPITHELIAL CELLS TNTC
[2022-10-15 07:33] VITALS: BP 101/49
[2022-10-15 08:08] VITALS: BP 129/89
[2022-10-15] MEDS ORDERED: POTASSIUM CHLO20 ME4 PO (08:39)
[2022-10-15] MEDS ORDERED: ASPERCREME76.5 GM T (08:40)
[2022-10-15] MEDS ORDERED: PULMICORT RESP0.5 M1 INH (08:40)
[2022-10-15] MEDS ORDERED: IRON325 M1 PO (08:41)
[2022-10-15] MEDS ORDERED: WAL-FEX180 MG PO (08:43)
[2022-10-15] MEDS ORDERED: MIRALAX POWDER17 G1 PO (08:43)
[2022-10-15] MEDS ORDERED: PAIN RELIEF1 EACH T (08:44)
[2022-10-15] MEDS ORDERED: MELATONIN3 MG PO (08:47)
[2022-10-15] MEDS ORDERED: MEMANTINE HCL5 MG PO (08:48)
[2022-10-15] MEDS ORDERED: MYRBETRIQ50 M1 PO (08:49)
[2022-10-15] MEDS ORDERED: NAC PO (08:50)
[2022-10-15] MEDS ORDERED: PROTONIX40 MG PO (08:51)
[2022-10-15] MEDS ORDERED: VITAMIN D350 MC2 PO (08:52)
[2022-10-15] MEDS ORDERED: ARTIFICIAL TEAR1514 OD (08:54)
[2022-10-15] MEDS ORDERED: Ipratropium Brom3 ML INH (08:55)
[2022-10-15] MEDS ORDERED: TYLENOL325 M3 PO (08:55)
[2022-10-15] MEDS ORDERED: NYSTATIN15 GM T (08:56)
[2022-10-15] MEDS ORDERED: ROBAFEN100 MG/51 PO (08:57)
[2022-10-15 12:00] VITALS: BP 111/54
[2022-10-15 16:00] VITALS: BP 117/63
[2022-10-15 20:00] VITALS: BP 108/58
[2022-10-16] VITALS: BP 104/44
[2022-10-16 07:25] LABS: BASO % 0.5 % (0.0-1.0); EOS # 0.2 10*3/uL (0.0-0.4); EOS % 4.8 % (1.0-4.0); HEMATOCRIT 28.9 % (37.0-47.0); LYMPH # 0.8 10*3/uL (1.3-4.4); LYMPH % 18.2 % (27.0-41.0); MEAN CELL VOLUME 101.8 fl (81.0-99.0); MEAN CORPUSCULAR HGB 33.8 pg (27.0-31.0); MEAN CORPUSCULAR HGB CONC 33.2 g/dl (33.0-37.0); MONO # 0.6 10*3/uL (0.1-1.0); MONO % 14.7 % (3.0-9.0); NEUT # 2.7 10*3/uL (2.3-7.9); NEUT % 61.6 % (47.0-73.0); PLATELET COUNT AUTOMATED 167 10*3/uL (130-400); RED BLOOD COUNT 2.84 10*6/uL (4.10-5.10); RED CELL DISTRI WIDTH 14.1 % (0-14.5); WHITE BLOOD COUNT 4.3 10*3/uL (4.8-10.8)
[2022-10-16 07:40] LABS: CREATININE 2.25 mg/dL (0.55-1.02); POTASSIUM 3.7 mmol/L (3.5-5.1)
[2022-10-16 08:00] VITALS: BP 125/55
[2022-10-16 12:00] VITALS: BP 118/52
[2022-10-16 16:00] VITALS: BP 115/63
[2022-10-16 20:00] VITALS: BP 114/57
[2022-10-16 20:11] LABS: CREATININE 1.75 mg/dL (0.55-1.02)
[2022-10-17] VITALS: BP 97/46
[2022-10-17 06:08] LABS: CREATININE 1.5 mg/dL (0.55-1.02); POTASSIUM 3.8 mmol/L (3.5-5.1)
[2022-10-17 06:16] LABS: BASO % 0.9 % (0.0-1.0); EOS # 0.3 10*3/uL (0.0-0.4); EOS % 7.6 % (1.0-4.0); HEMATOCRIT 28.1 % (37.0-47.0); LYMPH # 0.8 10*3/uL (1.3-4.4); LYMPH % 23.9 % (27.0-41.0); MEAN CELL VOLUME 104.1 fl (81.0-99.0); MEAN CORPUSCULAR HGB 33.7 pg (27.0-31.0); MEAN CORPUSCULAR HGB CONC 32.4 g/dl (33.0-37.0); MEAN PLATELET VOLUME 11.1 fl (9.6-12.3); MONO # 0.4 10*3/uL (0.1-1.0); MONO % 10.2 % (3.0-9.0); NEUT % 57.1 % (47.0-73.0); PLATELET COUNT AUTOMATED 147 10*3/uL (130-400); RED CELL DISTRI WIDTH 13.8 % (0-14.5); WHITE BLOOD COUNT 3.4 10*3/uL (4.8-10.8)
[2022-10-17 08:00] VITALS: BP 118/54
[2022-10-17 12:00] VITALS: BP 123/54
[2022-10-17 16:00] VITALS: BP 128/62
[2022-10-17 20:00] VITALS: BP 139/62
[2022-10-18] VITALS: BP 120/57
[2022-10-18 06:24] LABS: BASO % 0.3 % (0.0-1.0); CREATININE 1.21 mg/dL (0.55-1.02); EOS # 0.2 10*3/uL (0.0-0.4); EOS % 6.4 % (1.0-4.0); HEMATOCRIT 28.1 % (37.0-47.0); LYMPH # 0.8 10*3/uL (1.3-4.4); LYMPH % 22.4 % (27.0-41.0); MEAN CELL VOLUME 103.7 fl (81.0-99.0); MEAN CORPUSCULAR HGB 33.9 pg (27.0-31.0); MEAN CORPUSCULAR HGB CONC 32.7 g/dl (33.0-37.0); MEAN PLATELET VOLUME 11.1 fl (9.6-12.3); MONO # 0.3 10*3/uL (0.1-1.0); MONO % 8.8 % (3.0-9.0); NEUT # 2.3 10*3/uL (2.3-7.9); NEUT % 61.8 % (47.0-73.0); PLATELET COUNT AUTOMATED 150 10*3/uL (130-400); POTASSIUM 3.9 mmol/L (3.5-5.1); RED BLOOD COUNT 2.71 10*6/uL (4.10-5.10); RED CELL DISTRI WIDTH 13.6 % (0-14.5); WHITE BLOOD COUNT 3.8 10*3/uL (4.8-10.8)
[2022-10-18 08:00] VITALS: BP 157/61
[2022-10-18 12:00] VITALS: BP 115/57
[2022-10-18 16:00] VITALS: BP 142/50
[2022-10-18 20:00] VITALS: BP 157/75
[2022-10-19] VITALS: BP 111/55
[2022-10-19 08:00] VITALS: BP 173/80
[2022-10-19 16:00] VITALS: BP 174/65
[2022-10-19 20:00] VITALS: BP 161/68
[2022-10-20 06:37] LABS: BASO % 0.4 % (0.0-1.0); EOS # 0.2 10*3/uL (0.0-0.4); EOS % 4.4 % (1.0-4.0); HEMATOCRIT 30.9 % (37.0-47.0); LYMPH # 0.8 10*3/uL (1.3-4.4); LYMPH % 15.9 % (27.0-41.0); MEAN PLATELET VOLUME 10.7 fl (9.6-12.3); MONO # 0.5 10*3/uL (0.1-1.0); MONO % 9.8 % (3.0-9.0); NEUT # 3.5 10*3/uL (2.3-7.9); NEUT % 68.9 % (47.0-73.0); PLATELET COUNT AUTOMATED 152 10*3/uL (130-400); RED BLOOD COUNT 3.09 10*6/uL (4.10-5.10); RED CELL DISTRI WIDTH 13.3 % (0-14.5)
[2022-10-20 06:59] LABS: BUN 9 mg/dl (7-24); CHLORIDE 103 mmol/L (98-107); CREATININE 1.01 mg/dL (0.55-1.02); POTASSIUM 3.6 mmol/L (3.5-5.1); SODIUM 138 mmol/L (136-145)
[2022-10-20 08:00] VITALS: BP 147/58
[2022-10-20 12:00] VITALS: BP 151/76; BP 157/66
[2022-10-20 16:00] VITALS: BP 143/63
[2022-10-20 20:00] VITALS: BP 142/62
[2022-10-21] VITALS: BP 124/53
[2022-10-21 08:17] VITALS: BP 110/70
[2022-10-21 12:00] VITALS: BP 116/90
[2022-10-21 16:00] VITALS: BP 135/77
[2022-10-21 20:00] VITALS: BP 116/54
[2022-10-22] VITALS: BP 119/52
[2022-10-22 08:00] VITALS: BP 136/67
[2022-10-22 12:00] VITALS: BP 122/69
[2022-10-22 16:00] VITALS: BP 141/60
[2022-10-22 20:00] VITALS: BP 128/48
[2022-10-23] VITALS: BP 114/52
[2022-10-23 08:00] VITALS: BP 122/84
[2022-10-23 12:00] VITALS: BP 124/56
[2022-10-23 16:00] VITALS: BP 133/65
[2022-10-23 20:00] VITALS: BP 131/60
[2022-10-24] VITALS: BP 116/55
[2022-10-24 07:08] LABS: BASO % 0.3 % (0.0-1.0); EOS # 0.3 10*3/uL (0.0-0.4); EOS % 7.3 % (1.0-4.0); HEMATOCRIT 29.9 % (37.0-47.0); LYMPH # 0.7 10*3/uL (1.3-4.4); LYMPH % 19.1 % (27.0-41.0); MEAN CELL VOLUME 100.7 fl (81.0-99.0); MEAN CORPUSCULAR HGB 32.7 pg (27.0-31.0); MEAN CORPUSCULAR HGB CONC 32.4 g/dl (33.0-37.0); MONO # 0.3 10*3/uL (0.1-1.0); MONO % 9.2 % (3.0-9.0); NEUT # 2.4 10*3/uL (2.3-7.9); NEUT % 63.6 % (47.0-73.0); PLATELET COUNT AUTOMATED 194 10*3/uL (130-400); RED BLOOD COUNT 2.97 10*6/uL (4.10-5.10); RED CELL DISTRI WIDTH 13.4 % (0-14.5); WHITE BLOOD COUNT 3.7 10*3/uL (4.8-10.8)
[2022-10-24 07:15] LABS: CHLORIDE 100 mmol/L (98-107); POTASSIUM 3.2 mmol/L (3.4-5.1); SODIUM 140 mmol/L (136-145)
[2022-10-24 07:21] LABS: BUN 11 mg/dl (9-23)
[2022-10-24 08:00] VITALS: BP 104/53
[2022-10-24] MEDS ORDERED: HYDROCODONE-AC1 EAC1 PO ×2 (08:47→09:15)
[2022-10-24] MEDS ORDERED: LASIX20 MG PO (08:50)
[2022-10-24] MEDS ORDERED: NATURE'S BLEND F1 MG PO (08:50)
[2022-10-24] MEDS ORDERED: AMOX-CLAV 875-1 EACH PO (08:51)
[2022-10-24 12:00] VITALS: BP 115/59
== END 2022-10-24 15:44 | DRG 177 ==
LOC: ED 23:30 → 4E 10-15 06:11 → EDHOLD 10-15 06:11 → 4E 10-15 07:37
PROVIDERS: Emergency Medicine; Internal Medicine; Internal Medicine Nephrology; Registered Nurse; Student in an Organized Health Care Education/Training Program; ADMIT Family Medicine; ATTEND Family Medicine
DX: J15.6 Pneumonia due to other Gram-negative bacteria (principal); J96.01 Acute respiratory failure with hypoxia; N17.0 Acute kidney failure with tubular necrosis; N39.0 Urinary tract infection, site not specified; E44.0 Moderate protein-calorie malnutrition; Z20.822 Contact with and (suspected) exposure to COVID-19; F32.A Depression, unspecified; K21.9 Gastro-esophageal reflux disease without esophagitis; E78.5 Hyperlipidemia, unspecified; I10 Essential (primary) hypertension; Z66 Do not resuscitate; Z96.652 Presence of left artificial knee joint; D53.9 Nutritional anemia, unspecified; R73.9 Hyperglycemia, unspecified; M19.90 Unspecified osteoarthritis, unspecified site; D72.810 Lymphocytopenia; K80.20 Calculus of gallbladder without cholecystitis without obstruction; R91.1 Solitary pulmonary nodule; Z68.29 Body mass index [BMI] 29.0-29.9, adult; Z86.16 Personal history of COVID-19; Z90.710 Acquired absence of both cervix and uterus; Z87.891 Personal history of nicotine dependence; Z82.49 Family history of ischemic heart disease and other diseases of the circulatory system; Z78.9 Other specified health status